=== PATIENT | male | born 1995 | race Caucasian/White ===

== ENCOUNTER 2016-12-04 08:06 | Emergency (ER) | payer OTHER ==
[~2016-12-04] VITALS: Ht 180.3 cm; Wt 77.2 kg
[2016-12-04 08:13] VITALS: BP 119/65
[2016-12-04] MEDS ORDERED: CLOT1CRE6 TOP (08:29)
== END 2016-12-04 08:51 | disposition home or self-care (01) ==
LOC: M ED 08:38
DX: B35.4 Tinea corporis (principal); F17.200 Nicotine dependence, unspecified, uncomplicated; Z87.820 Personal history of traumatic brain injury; Z88.0 Allergy status to penicillin